=== PATIENT | female | born 1955 | race Caucasian/White ===

== ENCOUNTER 2020-02-15 06:33 | Observation (INO) ==
--- NOTE | 2020-02-01 08:51 | PAT Medication Instructions ---
Medication Instructions Date of Service February 01, 2020 Home Medications acetaminophen 1,000 mg PO QAM PRN amoxicillin 500 mg PO UD azelastine 2 spray INTRANASAL BID bupropion HCl 75 mg PO HS sjkhkiqjsp-xuiklivqirema-smep 1 cap PO Q6H PRN cyclosporine [Restasis] 1 drp OPHTHALMIC (EYE) Q12H docusate sodium [Dulcolax Stool Softener (dss)] 100 mg PO HS felodipine 5 mg PO QAM fexofenadine [Hayley] 60 mg PO BID PRN gabapentin 300 mg PO HS hydrochlorothiazide 12.5 mg PO QAM nitrofurantoin macrocrystal 50 mg PO UD pantoprazole 40 mg PO QAM polyethylene glycol 3350 [Miralax] 17 g PO DAILY PRN solifenacin [Vesicare] 10 mg PO Q2D Continue as directed amoxicillin 500 mg PO UD nitrofurantoin macrocrystal 50 mg PO UD DO NOT take the morning of surgery yzofvjqxdb-hhihlnxjozips-astd 1 cap PO Q6H PRN fexofenadine [Hayley] 60 mg PO BID PRN hydrochlorothiazide 12.5 mg PO QAM polyethylene glycol 3350 [Miralax] 17 g PO DAILY PRN solifenacin [Vesicare] 10 mg PO Q2D Take morning of surgery With a small sip of water, OTHERWISE NOTHING TO EAT OR DRINK AFTER MIDNIGHT: acetaminophen 1,000 mg PO QAM PRN (okay to take up to 4 hours prior to surgery if needed) azelastine 2 spray INTRANASAL BID cyclosporine [Restasis] 1 drp OPHTHALMIC (EYE) Q12H felodipine 5 mg PO QAM pantoprazole 40 mg PO QAM Take evening before surgery acetaminophen 1,000 mg PO QAM PRN (if needed) azelastine 2 spray INTRANASAL BID bupropion HCl 75 mg PO HS wrvugmhrgm-hkjkqofjemuer-sskv 1 cap PO Q6H PRN (if needed) cyclosporine [Restasis] 1 drp OPHTHALMIC (EYE) Q12H docusate sodium [Dulcolax Stool Softener (dss)] 100 mg PO HS fexofenadine [Hayley] 60 mg PO BID PRN (if needed) gabapentin 300 mg PO HS polyethylene glycol 3350 [Miralax] 17 g PO DAILY PRN (if needed) Other Notes If you have any questions please call us at [phone] or [phone] or [phone] or [phone]
--- NOTE | 2020-02-01 13:01 | Anesthesiology Consultation ---
Date of Service February 01, 2020 Assessment & Plan (1) Encounter for pre-operative examination: Per PAT assessment on 01/31: Travel screen- Lives in [place]. Travel to [facility] for doctor appt. Uses PPE. No known COVID-19 positive contacts. No current COVID-19 related symptoms. Surgeon arranging preop COVID testing. Awaiting results. Chart Review Chart Review: Acceptable Risk for Surgery and Patient seen in Pre Admission Testing Teaching & Discussion Pre-Anesthesia Teaching/Discussion Notes: Instructed NPO after midnight before surgery,except medications with 15 cc of water. Medication instructions provided according to the PAT guidelines. History Surgery Operation Date: 02/15/20 14:20 Proposed Procedures p Left Total Hip Arthroplasty - Jeremy Laura MD Height/Weight Height: 5 ft 7 in Weight: 94.1 kg Allergies Allergy/AdvReac Type Severity Reaction Status Date / Time codeine AdvReac Mild NAUSEA Verified 01/31/20 08:19 Medications Home Medications Medication Instructions Recorded Confirmed Last Taken acetaminophen 1,000 mg PO QAM PRN 01/31/20 01/31/20 Unknown amoxicillin 500 mg PO UD 01/31/20 01/31/20 Unknown azelastine 2 spray INTRANASAL BID 01/31/20 01/31/20 Unknown bupropion HCl 75 mg PO HS 01/31/20 01/31/20 Unknown ksnackigto-wzxptyffrirrh-fvhc 1 cap PO Q6H PRN 01/31/20 01/31/20 Unknown cyclosporine [Restasis] 1 drp OPHTHALMIC (EYE) Q12H 01/31/20 01/31/20 Unknown docusate sodium [Dulcolax Stool 100 mg PO HS 01/31/20 01/31/20 Unknown Softener (dss)] felodipine 5 mg PO QAM 01/31/20 01/31/20 Unknown fexofenadine [Hayley] 60 mg PO BID PRN 01/31/20 01/31/20 Unknown gabapentin 300 mg PO HS 01/31/20 01/31/20 Unknown hydrochlorothiazide 12.5 mg PO QAM 01/31/20 01/31/20 Unknown nitrofurantoin macrocrystal 50 mg PO UD 01/31/20 01/31/20 Unknown pantoprazole 40 mg PO QAM 01/31/20 01/31/20 Unknown polyethylene glycol 3350 [Miralax] 17 g PO DAILY PRN 01/31/20 01/31/20 Unknown solifenacin [Vesicare] 10 mg PO Q2D 01/31/20 01/31/20 Unknown Past Medical History Medical History Anxiety Constipation Depression GERD (gastroesophageal reflux disease) controlled Hx of renal calculi small/under surveillance Hyperlipidemia Hypertension Migraine Obesity Sleep apnea "mild"/no device Exercise / Class Metabolic Activity III < 4 Walking/Shop/Light housework (uses cane) Past Surgical History Surgical History (Updated 02/01/20 @ 13:22 by Silvina Monsivais) History of back surgery L3-S1 lumbar laminectomy/fusion History of carpal tunnel surgery of right wrist History of total left knee replacement (TKR) Hx laparoscopic cholecystectomy Hx of bladder repair surgery BLADDER SLING Hx of colonoscopy Hx of esophagogastroduodenoscopy Hx of hysterectomy Hx of tubal ligation Past Anesthesia History No Hx of Anesthesia Complications (except PONV) and No Family Hx of Anesthesia Complications History of PONV History of PONV and Hx of Motion Sickness Social History Smoking Status: Never smoker Do You Dip or Chew Tobacco: No Hx Alcohol Use: Yes alcohol intake frequency: holidays/special occasions only Hx Substance Use: No substance use type: does not use Review of Systems Patient denies chest pain, shortness of breath, fever, chills, cough, wheezing, palpitations. Physical Exam Vital Signs VITALS BP 129/87 P 70 TEMP 97.9 SP02 99%RA RESP 16 PHYSICAL Full neck and c-spine range of motion. Full TMJ range of motion. TMD 3.5 finger breaths Mallampati Score 1 Dentition: intact, + crowns (several all over), + implant (right lower side) Lungs: clear throughout to auscultation Cardiac: regular rate and rhythm, no murmurs noted Spine: normal Carotid arteries: negative bruit Extremities: no edema Testing Laboratory Results 02/01/20 13:30 02/01/20 13:30 PT 10.7 Seconds (9.0-12.0) 02/01/20 13:30 INR 1.0 (0.9-1.1) 02/01/20 13:30 APTT 28.3 Seconds (21.0-31.0) 02/01/20 13:30 Blood Type A Negative 02/01/20 13:30 Antibody Screen NEGATIVE 02/01/20 13:30 Electrocardiogram Date: 02/01/20 NSR at 68bpm. unconfirmed report. Chest X-Ray Date: 02/01/20 FINDINGS: PA and lateral chest radiographs are compared to study dated 11/10/2014. The cardiomediastinal silhouette is unremarkable. The lungs and pleural spaces are clear. There is no pneumothorax. The bony thorax appears intact. Surgical clips are noted in the upper abdomen. IMPRESSION: No active disease in the chest.
--- NOTE | 2020-02-01 13:55 | XRay Report ---
TWO VIEW CHEST CLINICAL HISTORY: Preoperative examination. FINDINGS: PA and lateral chest radiographs are compared to study dated 11/10/2014. The cardiomediastina l silhouette is unremarkable. The lungs and pleural spaces are clear. There is no pneumothorax. The bony thorax appears intact. Surgical clips are noted in the upper abdomen. IMPRESSION: No active disease in the chest. ACT 112: Negative or not required by law. Electronically signed by: Chase Reed M.D. 02/01/2020 1:54 PM
[2020-02-01 14:48] LABS: Basophils # (auto) 0.03 K/uL (0-0.2); Basophils % (auto) 0.5 %; Eosinophils # (auto) 0.08 K/uL (0-0.5); Eosinophils % (auto) 1.3 %; Hematocrit (blood only) 46.1 % (37-47); Hemoglobin 15.4 g/dL (12.0-16.0); Immature Granulocytes # (auto) 0.01 K/uL (0.00-0.02); Immature Granulocytes % (auto) 0.2 %; Lymphocytes # (auto) 2.92 K/uL (1.2-3.4); Lymphocytes % (auto) 45.8 %; Mean Corpuscular Hemoglobin 29.6 pg (25-34); Mean Corpuscular Hgb Conc 33.4 g/dL (32-36); Mean Corpuscular Volume 88.5 fL (80-100); Mean Platelet Volume 10.2 fL (7.4-10.4); Monocytes # (auto) 0.62 K/uL (0.11-0.59); Monocytes % (auto) 9.7 %; Neutrophils # (auto) 2.72 K/uL (1.4-6.5); Neutrophils % (auto) 42.5 %; Platelet Count 332 K/uL (130-400); RDW Coefficient of Variation 13.4 % (11.5-14.5); RDW Standard Deviation 43.7 fL (36.4-46.3); Red Blood Count 5.21 M/uL (4.2-5.4); White Blood Count 6.38 K/uL (4.8-10.8)
[2020-02-01 14:58] LABS: BUN Creatinine Ratio 19.3 (10-20); Blood Urea Nitrogen 19 mg/dl (7-18); C Reactive Protein < 0.29 mg/dl (0-0.29); Calcium 9.5 mg/dl (8.5-10.1); Carbon Dioxide 27 mmol/L (21-32); Chloride 106 mmol/L (98-107); Creatinine Clr Calc Pharmacy 68.5 ml/min; Est GFR (African American) 70.3; Est GFR (Non-African American) 60.6; Glucose 86 mg/dl (70-99); Potassium 3.9 mmol/L (3.5-5.1); Sodium 138 mmol/L (136-145)
[2020-02-01 15:10] LABS: Partial Thromboplastin Time 28.3 Seconds (21.0-31.0); Prothrombin Time 10.7 Seconds (9.0-12.0)
--- NOTE | 2020-02-01 17:14 | Electrocardiogram Report ---
Test Reason : Blood Pressure : / mmHG Vent. Rate : 068 BPM Atrial Rate : 068 BPM P-R Int : 150 ms QRS Dur : 084 ms QT Int : 418 ms P-R-T Axes : 053 041 026 degrees QTc Int : 444 ms Normal sinus rhythm Normal ECG When compared with ECG of 10-NOV-2014 13:48, No significant change was found Confirmed by Fei Zuleta ([id number]) on 02/01/2020 5:14:28 PM Referred By: Jeremy Laura Confirmed By:Fei Zuleta
[~2020-02-15 06:33] MED LIST: ACETAMINOPHEN 500 MG TAB PO SCH; CEFAZOLIN 2000MG 2,000 MG/15 ML SYR IV SCH; FAMOTIDINE 20 MG TAB PO SCH; GABAPENTIN 600 MG DOSE PO SCH; LR 500ML BOLUS, THEN 15ML/HR IV SCH; LR 60ML/HR IV SCH; ROPIVACAINE 0.5% HCL/PF 150 MG, BUPIVACAINE 0.5% MPF 30 ML, EPINEPHrine 30MG/30ML (OR U... INSTIL SCH; TRANEXAMIC ACID 1,000 MG **IV Pre-op IV SCH
[2020-02-15] MEDS ORDERED: BUPIVACAINE 0.5 % 5 MG/1 ML PF 10ML VIAL ONE (06:37)
--- NOTE | 2020-02-15 06:49 | History & Physical Bridge Note ---
Date of Service February 15, 2020 History & Physical Bridge Note I have examined the patient, reviewed the History & Physical and in the interval since the performance of the History & Physical I have noted the following changes of clinical significance: no changes noted
[2020-02-15] MEDS ORDERED: Nursing to Pharmacy Communication SCH (07:00)
[2020-02-15] MEDS ORDERED: GLYCOPYRROLATE 0.2 MG/ML VIAL ONE (07:09)
[2020-02-15] MEDS ORDERED: DEXAMETHASONE SOD INJ 4 MG/ML VIAL ONE (07:09)
[2020-02-15] MEDS ORDERED: ONDANSETRON INJ 2 MG/ML 2 ML VIAL ONE (07:09)
[2020-02-15] MEDS ORDERED: LIDOCAINE HCL 2% 2 ML VIAL/AMP(20MG/ML) INFIL ONE (07:09)
[2020-02-15] MEDS ORDERED: PROPOFOL IV EMULSION 10 MG/ML 20 ML VIAL IV ONE ×2 (07:09→09:38)
[2020-02-15] MEDS ORDERED: MIDAZOLAM HCL 1 MG/ML 2ML VIAL ONE (07:09)
[2020-02-15] MEDS ORDERED: MoRPHine SULFATE PF 1 MG/ML 10 ML AMP/VIAL ONE (07:36)
[2020-02-15] MEDS ORDERED: EPINEPHrine INJ 1 MG/ML AMP ONE (08:17)
[2020-02-15] MEDS ORDERED: BACITRACIN INJ 50,000 UNIT VIAL ONE (08:17)
[2020-02-15] MEDS ORDERED: BUPIVACAINE 0.5 % 5 MG/1 ML MPF 30ML VIAL ONE (08:17)
[2020-02-15] MEDS ORDERED: NALOXONE HCL 0.4 MG/1 ML VIAL/CARP IV PRN (08:30)
[2020-02-15] MEDS ORDERED: NALOXONE HCL 1 MG in SODIUM CHLORIDE 0.9% 1000ML 1,000 ML IV PRN (08:30)
[2020-02-15] MEDS ORDERED: DiphenhydrAMINE HCL 50 MG/ML VIAL IV PRN (08:30)
[2020-02-15] MEDS ORDERED: DC INTRASPINAL MORPHINE SCH (08:30)
[2020-02-15] MEDS ORDERED: NALOXONE HCL 0.08 MG in SYRINGE 1.8 ML IV PRN (08:30)
[2020-02-15] MEDS ORDERED: MEPERIDINE HCL 25 MG/ML CARP/VIAL IV PRN (08:30)
[2020-02-15] MEDS ORDERED: ePHEDrine sulfate 50 MG/ML AMP IV PRN (08:30)
[2020-02-15] MEDS ORDERED: MoRPHine SULFATE PF 1 MG/ML 10 ML AMP/VIAL INT SPINAL ONE (08:30)
[2020-02-15] MEDS ORDERED: SODIUM CHLORIDE 0.9% 1000ML 1,000 ML IV SCH (08:30)
[2020-02-15] MEDS ORDERED: LACTATED RINGER'S 500 ML IV PRN (08:30)
[2020-02-15] MEDS ORDERED: NO NARCOTICS OR SEDATIVES SCH (08:30)
--- NOTE | 2020-02-15 10:15 | Post Operative Brief Note ---
PG Immediate Post Op with CF Date of Surgery February 15, 2020 Pre & Post Diagnosis Operation Date: 02/15/20 08:50 Pre-Op Diagnosis: Left Hip Advanced Degenerative Joint Disease Post-Op Diagnosis: Left Hip Advanced Degenerative Joint Disease I identified the patient and participated in the time-out.: Yes Procedure Operation Date: 02/15/20 08:50 Actual Procedures p Left Total Hip Arthroplasty--Uncemented(Left) - Jeremy Laura MD Surgeon Jeremy Laura MD Tax Intern Derek, PAC Estimated Blood Loss 200 Findings Consistent with Post-Op Diagnosis Fluids 1000 cc Specimens Specimen Description: A. Left Femoral Head Drains Henry Catheter Anesthesia Type Spinal MAC Complications none Disposition Accompanied Patient To Recovery: Yes Disposition: Recovery Room
--- NOTE | 2020-02-15 10:29 | Operative Report ---
Post Operative Report Pre & Post Diagnosis Operation Date: 02/15/20 08:50 Pre-Op Diagnosis: Left Hip Advanced Degenerative Joint Disease Post-Op Diagnosis: Left Hip Advanced Degenerative Joint Disease I identified the patient and participated in the time-out.: Yes Procedure Operation Date: 02/15/20 08:50 Actual Procedures p Left Total Hip Arthroplasty--Uncemented(Left) - Jeremy Laura MD Surgeon Jeremy Laura MD Bulldozer Operator Derek, ALIYA Estimated Blood Loss 200 Findings Consistent with Post-Op Diagnosis femoral head and acetabulum. She had a large anterior acetabular osteophyte. Diffuse disuse osteopenia.Operative findings revealed advanced left hip DJD. She had subluxation of the femoral head with extensive grade 4 qhac-dy-namz disease of the acetabulum and femoral head. She had a large anterior acetabular osteophyte. She had extensive osteopenia. She had a very dysplastic acetabulum. Fluids 1000 cc. Specimens Left femoral head sent for pathology. Drains None. Anesthesia Type Spinal MAC Complications none Disposition Accompanied Patient To Recovery: Yes Disposition: Recovery Room Indications Patient is a 64-year-old female without a several year history of extensive left hip and leg and thigh pain and discomfort. She did undergo a pretty extensive back operation in [place] less than a year ago which is helped some with her back issues but she continued to be debilitated by her left hip and leg pain. She has had to resort to using a cane to get around and never got off that after spine surgery. X-ray showed advanced left hip DJD. She elected proceed with surgical treatment. Description of Procedure Operative implants consist of: 1. Biomet G7 size 54 mm acetabular shell. 2. Biomet 6.5 cancellus acetabular screws 1 and 35 mm length and 125 mm length. 3. An apex hole limiter. 4. Highly cross-linked polyethylene liner with a 54 mm outer diameter, 40 mm inner diameter with a leg placed inferior and posterior. 5. Consuelo Corail size 12 KLA femoral stem. 6. +8.5/40 mm ceramic articular ball. Patient was taken to the operating identified and placed on the operating table supine position but all contractors were properly padded. IV antibiotics tried by anesthesia team. A spinal anesthetic had been implemented in the holding area. A Henry catheter was placed in sterile fashion. The patient then placed in the right lateral decubitus position. An axillary roll was placed. The Stulberg hip positioner was used for position. Left hip and leg were then prepped and draped in usual sterile fashion. A posterior lateral approach to the left hip was then performed through a cur vilinear incision centered over the greater trochanter. Sharp dissection Through subcutaneous cyst down to the IT band gluteal fascia but the IT band gluteal fascia then incised longitudinally in line with the skin incision. The underlying greater truck bursa was excised. The piriformis and external rotators along with the posterior capsule were then released from the posterior aspect hip joint as a single layer. Great care was taken throughout the procedure protect the sciatic nerve at all times. The hip was internally rotated and dislocated. A femoral neck osteotomy cut was made with a final cut about 10 mm above the lesser trochanter. The femoral head was removed and sent for pathology. The femur was retracted anteriorly. Attention drawn the acetabulum. The acetabular labrum was excised to the pulmonary fat was excised. Sequential reaming of the acetabulum was then performed. We did have to elevate the hip joint center due to her underlying dysplasia. I first reamed it medially and then very carefully reamed superiorly. Even doing this we did appear to penetrate the medial pelvis just slightly. I reamed beginning it with a size 43 and progressing up to 53. I did enter the acetabular the 54 due to osteopenia and I really did not want to potentially sacrifice any fracture of the acetabulum. We got good interference fit with a 54. I did bone graft the medial wall and then placed a 54 cup in about 40 degrees lateral opening and 20 degrees of anteversion. I took great care to try and antevert this enough due to her extensive spine fusion and increased risk for dislocation. The anterior osteophyte was removed. Trial liner was placed. We did decide to place a 40 head in order to maximize her her stability as I was concerned about stability with her extensive spine fusion in the past. Attention drawn the femur. The proximal femur was entered with a cookie-cutter followed by canal finder. I then broached beginning size 8 and progressing up to 12. This had excellent fit. Calcar reamer was used smooth off the calcar. Then trialed the hip. I did elect to place a good inferior and posterior to maximize her stability. The +8.5 head seem to re-create soft tissue tension appropriately. With a +5 head which is seem to be too lax. The hip was fully stable in full extension and external rotation flexion to 9 degrees into rotation about [address] We elected to place these implants. All trial implants were removed. An apex hole limiter was placed with a highly cross-linked polyethylene liner was placed. I did place the foot inferior and posterior to maximize her stability in flexion. A [place] KLA size 12 femoral stem was impacted in position. A +8.5/40mm femoral head was placed. The hip was located and was again found to be stable. Soft tissue tension seemed appropriate. Leg lengths seemed appropriate. Attention drawn toward closing. The wound was irrigated scopes and also pulsatile lavage solution. I did inject locally with 60 cc of half percent Marcaine with epinephrine. The posterior capsule and external rotators were repaired through drill holes in the posterior trochanter as a single layer with #2 Tycron suture. The IT band gluteal fascia then closed in 1 PDS suture in running fashion. Subcutaneous tissues then closed with 2 layers the deep layer #1 Vicryl suture subcutaneous tissues with 2-0 Dexon suture in a buried interrupted fashion for skin was then closed with skin babs. Leg was then cleaned dried a sterile dressing composed Xeroform, 4 fours, ABD pad, foam tape was applied. Patient then transferred to the recovery room in stable condition. Patient tolerated the procedure well and there were no complications. Anderson Reed, my physician assistant product manager, was present for the entire procedure. His assistance was essential and required for appropriate patient positioning, prepping and draping, surgical exposure, performing the technical details of the operation, placement of the implants, closure of the wound, and placement of the sterile bandage. I attest to the content of the Intraoperative Record and any orders documented therein. Any exceptions are noted below.
--- NOTE | 2020-02-15 10:43 | XRay Report ---
XR hip 1V LT w pelvis HISTORY: 64 years-old Female IN PACU - A/P PELVIS and LATERAL HIP left hip total joint arthroplasty COMPARISON: Left hip radiographs 01/27/2020 TECHNIQUE: AP view of the pelvis with crosstable lateral view of the left hip FINDINGS: Left hip total joint arthroplasty demonstrates satisfactory alignment. No acute fracture or retained foreign body. Expected postsurgical soft tissue swelling and deep tissue air with lateral skin staple s. 1.5 cm bone fragment projects lateral to the superior acetabulum. Severe right hip osteoarthritis. IMPRESSION: Satisfactory alignment of the left hip total joint arthroplasty ACT 112: Negative or not required by law. The above report was generated using voice recognition software. It may contain grammatical, syntax o r spelling errors. Electronically signed by: Jasmeet Parish M.D. 02/15/2020 10:41 AM
[2020-02-15] MEDS: ONDANSETRON INJ 2 MG/ML 2 ML VIAL IV PRN ×3 (11:24→22:16)
--- NOTE | 2020-02-15 11:28 | Anesthesiology Progress Note ---
Date of Service February 15, 2020 Anesthesia Post Procedure Vital Signs Vital Signs: Temp Pulse Pulse Resp BP Pulse Ox 02/15/20 11:25 97.5 F L 61 14 109/70 96 02/15/20 11:15 65 15 115/74 98 02/15/20 11:05 62 15 108/61 98 02/15/20 10:55 65 15 112/60 98 02/15/20 10:45 69 13 117/64 97 02/15/20 10:35 66 14 129/78 98 02/15/20 10:25 75 19 112/88 100 02/15/20 10:15 76 17 113/76 99 02/15/20 10:09 96.8 F L 84 24 130/70 97 02/15/20 07:06 97.7 F 68 18 139/75 99 Transfer of Care Handoff Completed per policy Notes Mental Status: alert / awake / arousable and participated in evaluation Patient Amnestic to Procedure: Yes Nausea / Vomiting: adequately controlled Pain: adequately controlled Airway Patency, RR, SpO2: stable & adequate BP & HR: stable & adequate Hydration State: stable & adequate Neuraxial Anesthesia: was administered and sensory block is resolving Anesthetic Complications: no major complications apparent and Pt Satisfied with anesthetic care
[2020-02-15] MEDS ORDERED: FEXOFENADINE 60 MG TAB PO PRN (11:57)
[2020-02-15] MEDS ORDERED: bisacodyL 10 MG SUPP PR PRN (11:57)
[2020-02-15] MEDS ORDERED: ALUMINUM/MAGNESIUM SUSP 30 ML UDC PO PRN (11:57)
[2020-02-15] MEDS ORDERED: MAGNESIUM HYDROXIDE SUSP 30 ML UDC PO PRN (11:57)
[2020-02-15] MEDS ORDERED: METOCLOPRAMIDE HCL INJ 5 MG/ML 2 ML VIAL IV PRN (11:57)
[2020-02-15] MEDS ORDERED: POLYETHYLENE (MIRALAX) 17 GM PACK PO PRN (11:57)
[2020-02-15] MEDS: GENERAL ORDER PROBLEM SCH ×6 (12:02→23:19)
[2020-02-15] MEDS ORDERED: BUTALBITAL/ACETAMIN/CAFFEINE TAB PO PRN (12:10)
[2020-02-15] MEDS: SODIUM CHLORIDE 0.9% 1000ML 1,000 ML IV SCH ×2 (12:27→21:34)
[2020-02-15] MEDS: ACETAMINOPHEN 500 MG TAB PO SCH ×3 (12:39→22:22)
[2020-02-15] MEDS: KETOROLAC 30 MG/ML VIAL IV SCH ×2 (12:40→17:18)
[2020-02-15] MEDS: Scopolamine CHECK PATCH PLACEMENT SCH (16:09)
[2020-02-15] MEDS: AZELASTINE ~ ORDER AWAITING ACTION SCH (16:10)
[2020-02-15] MEDS: CEFAZOLIN 2000MG 2,000 MG/15 ML SYR IV SCH (16:10)
[2020-02-15] MEDS: ASCORBIC ACID 500 MG TAB PO SCH (16:11)
[2020-02-15] MEDS: FERROUS GLUCONATE 324 MG TAB PO SCH (16:11)
[2020-02-15] MEDS ORDERED: TRANEXAMIC ACID / 0.7% NACL 1,000 MG/100 ML BAG IV SCH (16:19)
[2020-02-15] MEDS ORDERED: DOCUSATE SODIUM 100 MG CAP PO SCH (21:00)
[2020-02-15] MEDS: DOCUSATE SODIUM 100 MG CAP PO SCH (21:32)
[2020-02-15] MEDS: SENNA 8.6 MG TAB PO SCH (21:32)
[2020-02-15] MEDS: buPROPion HCl 75 MG TABLET PO SCH (21:33)
[2020-02-15] MEDS: GABAPENTIN 300 MG CAP PO SCH (21:33)
[2020-02-15] MEDS: ASPIRIN 81 MG ECTAB PO SCH (21:33)
[2020-02-16] MEDS: Scopolamine CHECK PATCH PLACEMENT SCH ×3 (00:11→15:01)
[2020-02-16] MEDS: CEFAZOLIN 2000MG 2,000 MG/15 ML SYR IV SCH (00:11)
[2020-02-16] MEDS: AZELASTINE ~ ORDER AWAITING ACTION SCH (00:12)
[2020-02-16] MEDS: KETOROLAC 30 MG/ML VIAL IV SCH ×4 (00:13→18:34)
[2020-02-16] MEDS ORDERED: HYDROmorphone INJ 0.5 MG/0.5 ML SYR IV PRN (02:32)
[2020-02-16] MEDS ORDERED: ONDANSETRON INJ 2 MG/ML 2 ML VIAL IV PRN (02:32)
[2020-02-16] MEDS ORDERED: NALOXONE HCL 0.4 MG/1 ML VIAL/CARP IV PRN (02:32)
[2020-02-16] MEDS: ACETAMINOPHEN 500 MG TAB PO SCH ×3 (05:27→21:18)
[2020-02-16 06:29] LABS: Basophils # (auto) 0.01 K/uL (0-0.2); Basophils % (auto) 0.1 %; Hematocrit (blood only) 36.4 % (37-47); Hemoglobin 12.3 g/dL (12.0-16.0); Immature Granulocytes # (auto) 0.02 K/uL (0.00-0.02); Immature Granulocytes % (auto) 0.2 %; Lymphocytes # (auto) 1.93 K/uL (1.2-3.4); Lymphocytes % (auto) 21.8 %; Mean Corpuscular Hemoglobin 29.8 pg (25-34); Mean Corpuscular Hgb Conc 33.8 g/dL (32-36); Mean Corpuscular Volume 88.1 fL (80-100); Mean Platelet Volume 10.1 fL (7.4-10.4); Monocytes # (auto) 1.06 K/uL (0.11-0.59); Neutrophils # (auto) 5.84 K/uL (1.4-6.5); Neutrophils % (auto) 65.9 %; Platelet Count 239 K/uL (130-400); RDW Coefficient of Variation 13.6 % (11.5-14.5); RDW Standard Deviation 44.1 fL (36.4-46.3); Red Blood Count 4.13 M/uL (4.2-5.4); White Blood Count 8.86 K/uL (4.8-10.8)
[2020-02-16 06:57] LABS: BUN Creatinine Ratio 25.2 (10-20); Calcium 8.3 mg/dl (8.5-10.1); Creatinine Clr Calc Pharmacy 91.5 ml/min; Est GFR (African American) 99.9; Est GFR (Non-African American) 86.2; Potassium 3.8 mmol/L (3.5-5.1)
[2020-02-16] MEDS: TRAMADOL HCL 50 MG TABLET PO PRN ×2 (08:07→15:11)
[2020-02-16] MEDS: DOCUSATE SODIUM 100 MG CAP PO SCH ×2 (08:08→20:48)
[2020-02-16] MEDS: PANTOprazole 40 MG TAB PO SCH (08:08)
[2020-02-16] MEDS: MULTIVITAMIN TAB PO SCH (08:08)
[2020-02-16] MEDS: FERROUS GLUCONATE 324 MG TAB PO SCH ×2 (08:08→16:46)
[2020-02-16] MEDS: FELODIPINE 5 MG TABCR PO SCH (08:08)
[2020-02-16] MEDS: ASPIRIN 81 MG ECTAB PO SCH ×2 (08:09→20:49)
[2020-02-16] MEDS: ASCORBIC ACID 500 MG TAB PO SCH ×2 (08:09→16:46)
[2020-02-16] MEDS: hydroCHLOROthiazide 25 MG TAB PO SCH (08:09)
--- NOTE | 2020-02-16 11:56 | Progress Notes ---
DATE: 02/16/2020 SUBJECTIVE: A 64-year-old female, she is postop day 1 from a left total hip replacement. She is doing pretty well. The nausea that she had last night has resolved mostly. The pain has been controlled. No chest pain or shortness of breath. Not feeling dizzy or lightheaded. OBJECTIVE: VITAL SIGNS: Temperature 36.6. Vital signs are stable. GENERAL: Shows a pleasant, middle-aged female. She is lying in bed, looks pretty comfortable. LUNGS: Clear to auscultation. HEART: Regular rate and rhythm. ABDOMEN: Soft, nontender, nondistended. EXTREMITIES: Grossly neurovascularly intact except as follows: Examination of the left lower extremity reveals the leg lengths to be equal. Dressing is clean, dry and intact. She can dorsiflex and plantarflex her foot appropriately. She is neurologically intact. LABORATORY DATA: Hemoglobin 12.3. Hematocrit 36.4. Electrolytes are stable. ASSESSMENT: A 64-year-old female postoperative day 1 from left hip replacement, doing well. She was pretty nauseated last night, but that has resolved. Hip is located. She is neurologically intact. Pain seems to be pretty well controlled. PLAN: 1. DVT prophylaxis including thigh-high TEDs, SCDs, and aspirin twice a day. 2. PT/OT. Weight bear as tolerated. Left total hip protocol. 3. Pain control, doing pretty well with current pain regimen. 4. Disposition: She is hoping to be discharged to home with some home health. We will see how therapy goes today and likely tomorrow.
[2020-02-16] MEDS: buPROPion HCl 75 MG TABLET PO SCH (20:48)
[2020-02-16] MEDS: GABAPENTIN 300 MG CAP PO SCH (20:48)
[2020-02-16] MEDS: SENNA 8.6 MG TAB PO SCH (20:49)
[2020-02-17] MEDS: Scopolamine CHECK PATCH PLACEMENT SCH ×2 (00:33→07:44)
[2020-02-17] MEDS: KETOROLAC 30 MG/ML VIAL IV SCH ×2 (00:34→06:11)
[2020-02-17] MEDS: ACETAMINOPHEN 500 MG TAB PO SCH (06:11)
[2020-02-17] MEDS: PANTOprazole 40 MG TAB PO SCH (07:43)
[2020-02-17] MEDS: MULTIVITAMIN TAB PO SCH (07:43)
[2020-02-17] MEDS: FELODIPINE 5 MG TABCR PO SCH (07:43)
[2020-02-17] MEDS: hydroCHLOROthiazide 25 MG TAB PO SCH (07:43)
[2020-02-17] MEDS: FERROUS GLUCONATE 324 MG TAB PO SCH (07:43)
[2020-02-17] MEDS: ASPIRIN 81 MG ECTAB PO SCH (07:43)
[2020-02-17] MEDS: ASCORBIC ACID 500 MG TAB PO SCH (07:43)
[2020-02-17] MEDS: DOCUSATE SODIUM 100 MG CAP PO SCH (07:43)
[2020-02-17] MEDS: TRAMADOL HCL 50 MG TABLET PO PRN (07:48)
--- NOTE | 2020-02-17 08:52 | Progress Notes ---
DATE: 02/17/2020 SUBJECTIVE: A 64-year-old female postop day 2 from a left hip replacement. She is doing pretty well. Pain has been controlled. The nausea is resolved. No chest pain or shortness of breath. Not feeling dizzy or lightheaded. OBJECTIVE: VITAL SIGNS: Temperature 37.0. Vital signs stable. GENERAL: Shows a pleasant, middle-aged female. She is lying in bed, looks reasonably comfortable. EXTREMITIES: Examination of the left leg reveals the leg to be well aligned. Dressing is clean, dry and intact. Thigh is soft and supple. She is neurologically intact. ASSESSMENT: A 64-year-old female postop day 2 from a left hip replacement, doing well. The nausea has resolved. Her pain is controlled. She is neurologically intact. Hip is located. PLAN: 1. DVT prophylaxis including thigh-high TEDs, SCDs, and aspirin twice a day. 2. PT/OT. Weight bear as tolerated. Left total hip protocol. 3. Pain control, doing pretty well with current pain regimen. 4. Disposition: Plan to discharge to home with some home health later today.
--- NOTE | 2020-02-23 15:04 | Discharge Summary ---
Date of Service February 23, 2020 Admission HPI Per Admitting Provider Documented in the H & P Admission Exam (Per Admitting) Constitutional Documented in the H & P Discharge Data Consultations 02/16/20 08:00 Consult Case Management - Discharge Planning Routine Procedures Performed Operation Date: 02/15/20 08:50 Actual Procedures p Left Total Hip Arthroplasty--Uncemented(Left) - Jeremy Laura MD Hospital Course (1) Status post total replacement of left hip: This patient is a 64 year old female admitted on 02/15/20 and underwent total hip arthroplasty. He tolerated the procedure well and there were no complications. Transferred to the PACU post op and later to the orthopedic floor for further care. He was given ancef for antibiotic prophylaxis. He was also given BARBARA stockings, SCDs, and aspirin for DVT prophylaxis. Hemoglobin, hematocrit, and vital signs were monitored during her hospital stay and remained stable. Did not require any blood transfusions. There were no complications during her hospital stay. By post op day #2 the patient was tolerating a regular diet, pain was reasonably controlled with oral pain medicine, and he was participating in physical therapy. On post op day #2 the patient was discharged home and set up with home health care. He was given printed discharge instructions including prescriptions for extra strength tylenol, aspirin, tramadol, and iron supplement. Continue physical therapy, weight bearing as tolerated. Total hip precautions. Continue BARBARA stockings. Follow up approximately 2 weeks post op or sooner if there are problems or concerns. Coding Level of Care Code None Diagnoses Status post total replacement of left hip Z96.642
== END 2020-02-17 11:39 | disposition home health service (06) ==
LOC: 3E 06:33 → ASU 06:33

== ENCOUNTER 2021-09-03 08:17 | Observation (INO) ==
--- NOTE | 2021-03-15 12:54 | PAT Medication Instructions ---
Medication Instructions Date of Service March 15, 2021 Home Medications acetaminophen 500 mg tablet 1,000 mg PO QAM PRN amoxicillin 500 mg capsule 500 mg PO UD azelastine 137 mcg (0.1 %) nasal spray aerosol 2 spray INTRANASAL BID bupropion HCl 75 mg tablet 75 mg PO HS cyclosporine 0.05 % eye drops in a dropperette (Restasis) 1 drp OPHTHALMIC (EYE) Q12H docusate sodium 100 mg capsule (Dulcolax Stool Softener (docusate)) 100 mg PO HS felodipine 5 mg tablet,extended release 24 hr 5 mg PO QAM fexofenadine 60 mg tablet 60 mg PO BID PRN gabapentin 300 mg capsule 300 mg PO HS hydrochlorothiazide 12.5 mg tablet 12.5 mg PO QAM nitrofurantoin macrocrystal 50 mg capsule 50 mg PO UD pantoprazole 40 mg tablet,delayed release 40 mg PO QAM polyethylene glycol 3350 17 gram/dose oral powder (Miralax) 17 g PO DAILY solifenacin 10 mg tablet (Vesicare) 10 mg PO Q2D ciclopirox 0.77 % topical cream 1 applic TOPICAL BID PRN terbinafine HCl 250 mg tablet 250 mg PO QPM Continue as directed amoxicillin 500 mg capsule 500 mg PO UD (prior to dental procedures) nitrofurantoin macrocrystal 50 mg capsule 50 mg PO UD (if needed) STOP taking 24 hours before surgery ciclopirox 0.77 % topical cream 1 applic TOPICAL BID PRN DO NOT take the morning of surgery hydrochlorothiazide 12.5 mg tablet 12.5 mg PO QAM polyethylene glycol 3350 17 gram/dose oral powder (Miralax) 17 g PO DAILY solifenacin 10 mg tablet (Vesicare) 10 mg PO Q2D fexofenadine 60 mg tablet 60 mg PO BID PRN Take morning of surgery With a small sip of water, OTHERWISE NOTHING TO EAT OR DRINK AFTER MIDNIGHT: acetaminophen 500 mg tablet 1,000 mg PO QAM PRN (okay to take up to 4 hours prior to surgery if needed) azelastine 137 mcg (0.1 %) nasal spray aerosol 2 spray INTRANASAL BID cyclosporine 0.05 % eye drops in a dropperette (Restasis) 1 drp OPHTHALMIC (EYE) Q12H felodipine 5 mg tablet,extended release 24 hr 5 mg PO QAM pantoprazole 40 mg tablet,delayed release 40 mg PO QAM Take evening before surgery acetaminophen 500 mg tablet 1,000 mg PO QAM PRN (if needed) azelastine 137 mcg (0.1 %) nasal spray aerosol 2 spray INTRANASAL BID bupropion HCl 75 mg tablet 75 mg PO HS cyclosporine 0.05 % eye drops in a dropperette (Restasis) 1 drp OPHTHALMIC (EYE) Q12H docusate sodium 100 mg capsule (Dulcolax Stool Softener (docusate)) 100 mg PO HS fexofenadine 60 mg tablet 60 mg PO BID PRN (if needed) gabapentin 300 mg capsule 300 mg PO HS terbinafine HCl 250 mg tablet 250 mg PO QPM Other Notes If you have any questions please call us at [phone] or [phone] or [phone] or [phone]
--- NOTE | 2021-03-19 13:40 | Anesthesiology Consultation ---
Date of Service March 19, 2021 Assessment & Plan (1) Encounter for pre-operative examination: - 3 attempts for SAB per anesthesia records left MICKEY 02/2020. Patient mentions temporary burning sensation of left lower extremity, reports resolution with needle re-positioning without recurrence. She expresses some concern with spinal, but that is still interested in spinal anesthesia. We discussed spinal and general anesthesia in detail and patient prefers plan of spinal anesthesia, aware this may change to general anesthesia if needed DOS. She denied further questions or concerns regarding this, she will also discuss with anesthesiologist am DOS. - Patient reports h/o PONV thought to be d/t morphine expressing N/V was not immediately post-op. She states did well with scop patch last year, reflected in records. She denies side effects with patch or h/o glaucoma. Added to orders for am DOS. - COVID screening: Per assessment on 03/19/2021: Travel screen negative, no known COVID-19 positive contacts or current COVID-19 related symptoms. Patient vaccinated. Surgeon arranging preop COVID testing, scheduled 04/11/2021. Awaiting results. Chart Review Chart Review: Acceptable Risk for Surgery and Patient seen in Pre Admission Testing Teaching & Discussion Pre-Anesthesia Teaching/Discussion Notes: Instructed NPO after midnight before surgery, except medications with 15 cc of water. Medication instructions provided according to the PAT guidelines. History Surgery Operation Date: 04/13/21 07:00 Proposed Procedures p Right Total Hip Arthroplasty - Jeremy Laura MD Height/Weight Height: 5 ft 7 in Weight: 101.2 kg Allergies Allergy/AdvReac Type Severity Reaction Status Date / Time morphine Allergy Intermediate Hives, Verified 03/19/21 13:21 vomiting codeine AdvReac Mild Nausea Verified 03/19/21 13:21 Medications Home Medications Medication Instructions Recorded Confirmed Last Taken acetaminophen 500 mg tablet 1,000 mg PO QAM PRN 01/31/20 03/12/21 02/14/20 22:00 amoxicillin 500 mg capsule 500 mg PO UD 01/31/20 03/12/21 Unknown azelastine 137 mcg (0.1 %) nasal 2 spray INTRANASAL BID 01/31/20 03/12/21 02/15/20 04:00 spray aerosol bupropion HCl 75 mg tablet 75 mg PO HS 08/24/20 10/04/21 09/07/20 22:00 cyclosporine 0.05 % eye drops in a 1 drp OPHTHALMIC (EYE) Q12H 01/31/20 03/12/21 02/15/20 04:00 dropperette (Restasis) docusate sodium 100 mg capsule 100 mg PO HS 01/31/20 03/12/21 02/14/20 22:00 (Dulcolax Stool Softener (docusate)) felodipine 5 mg tablet,extended 5 mg PO QAM 01/31/20 03/12/21 02/15/20 04:30 release 24 hr fexofenadine 60 mg tablet 60 mg PO BID PRN 01/31/20 03/12/21 Unknown gabapentin 300 mg capsule 300 mg PO HS 01/31/20 03/12/21 02/14/20 22:00 hydrochlorothiazide 12.5 mg tablet 12.5 mg PO QAM 01/31/20 03/12/21 02/14/20 10:30 nitrofurantoin macrocrystal 50 mg 50 mg PO UD 01/31/20 03/12/21 Unknown capsule pantoprazole 40 mg tablet,delayed 40 mg PO QAM 01/31/20 03/12/21 02/15/20 04:30 release polyethylene glycol 3350 17 17 g PO DAILY 01/31/20 03/12/21 02/14/20 10:30 gram/dose oral powder (Miralax) solifenacin 10 mg tablet (Vesicare) 10 mg PO Q2D 01/31/20 03/12/21 02/13/20 22:00 ciclopirox 0.77 % topical cream 1 applic TOPICAL BID PRN 03/12/21 03/12/21 Unknown terbinafine HCl 250 mg tablet 250 mg PO QPM 03/12/21 03/12/21 Unknown Past Medical History Medical History (Updated 03/19/21 @ 13:56 by Filomena Alvarez PA-C) Anxiety and depression Arthritis Constipation GERD (gastroesophageal reflux disease) Controlled, stable, denies issues laying flat History of migraine Hx of renal calculi "Small"/under surveillance Hyperlipidemia Hypertension Well controlled, stable Obesity Sleep apnea "Mild"/no device Patient denies h/o stroke, seizures, heart attack, heart failure, DM, blood clots or blood transfusions. Exercise / Class Metabolic Activity II 4-5 Yardwork/Stairs/Walk up hill (no CP or SOB with 1 FOS) Past Family History Family History Brother Family hx of colon cancer Past Surgical History Surgical History Family history of reaction to anesthesia Mother > "slow to wake" History of back surgery L3-S1 lumbar laminectomy/fusion History of carpal tunnel surgery of right wrist History of tooth extraction History of total hip arthroplasty Left MICKEY (02/15/20): SAB at L4-L5 (x THREE attempts) at [facility] History of total left knee replacement (TKR) Hx laparoscopic cholecystectomy Hx of bladder repair surgery Bladder sling Hx of colonoscopy Hx of esophagogastroduodenoscopy Hx of hysterectomy Hx of tubal ligation Nausea and vomiting after administration of anesthetic agent [place] teeth removed Past Anesthesia History No Hx of Anesthesia Complications and No Family Hx of Anesthesia Complications History of PONV No Hx of Motion Sickness and History of PONV (She reports thought to be d/t morphine, states has received scopolamine patch in past without side effects.) Social History Smoking Status: Never smoker Hx Alcohol Use: Yes alcohol intake frequency: holidays/special occasions only substance use type: does not use Review of Systems Patient denies chest pain, shortness of breath, dyspnea on exertion, fever, chills, cough, wheezing, palpitations. Physical Exam Vital Signs Vitals BP 110/77 P 89 TEMP 97.9 SP02 96% on RA RESP 16 Physical Full cervical extension range of motion without pain TMD 3 finger breaths Mallampati Score 2 Dentition: intact, missing tooth top left, implant bottom right side, multiple crowns throughout (denies any front); denies loose or chipped teeth or bridges Lungs: normal respiratory effort. Clear throughout to auscultation, no adventitious breath sounds Cardiac: regular rate and rhythm, no murmurs noted Carotid arteries: negative bruit bilat Extremities: no distal extremity edema Lab Results Anesthesia Preop Results Results Anesthesia Widget: WBC 6.78 K/uL (4.8-10.8) 03/19/21 Hgb 14.9 g/dL (12.0-16.0) 03/19/21 Hct 42.6 % (37-47) 03/19/21 Plt 349 K/uL (130-400) 03/19/21 Na 137 mmol/L (136-145) 03/19/21 K 3.7 mmol/L (3.5-5.1) 03/19/21 Cl 107 mmol/L (98-107) 03/19/21 CO2 23 mmol/L (21-32) 03/19/21 BUN 17 mg/dl (7-18) 03/19/21 Creat 0.92 mg/dl (0.6-1.2) 03/19/21 Glucose Level 112 mg/dl (70-99) H 03/19/21 PT 9.9 Seconds (9.0-12.0) 03/19/21 PTT 26.5 Seconds (21.0-31.0) 03/19/21 INR 1.0 (0.9-1.1) 03/19/21 Blood Type A Negative 03/19/21 Antibody Screen NEGATIVE 03/19/21 Lab Comments: ESR 31. CRP 0.56. Testing Electrocardiogram Date: 03/19/21 Normal sinus rhythm, rate at 76 bpm. Normal ECG When compared with ECG of 01-FEB-2020 13:35, Nonspecific T wave abnormality now evident in Anterior leads Confirmed by Papo Hernandez. Chest X-Ray Date: 03/19/21 No acute cardiopulmonary findings.
--- NOTE | 2021-08-24 10:47 | Anesthesiology Consultation ---
Date of Service August 24, 2021 Assessment & Plan (1) Encounter for pre-operative examination: Chart Review Chart Review: Acceptable Risk for Surgery (pending preop Covid testing results ) and Patient NOT seen in Pre Admission Testing Per Anesthesia Consultation 03/19/21= "-Patient reports h/o PONV thought to be d/t morphine expressing N/V was not immediately post-op. She states did well with scop patch last year, reflected in records. She denies side effects with patch or h/o glaucoma. (Could consider scop patch for DOS) Per nursing assessment 08/24/2021, patient denies any recent travel. Wears mask in public. No known Covid infection in the past 90 days. Patient is fully vaccinated for Covid. No known Covid positive exposures or Covid related symptoms. Preop Covid testing scheduled 08/31/21= will await results - 3 attempts for SAB at L4-5 per anesthesia records left MICKEY 02/15/2020 Per Anesthesia Consultation 03/19/21= "Patient mentions temporary burning sensation of left lower extremity, reports resolution with needle re-positioning without recurrence. She expresses some concern with spinal, but that is still interested in spinal anesthesia. We discussed spinal and general anesthesia in detail and patient prefers plan of spinal anesthesia, aware this may change to general anesthesia if needed DOS. She denied further questions or concerns regarding this, she will also discuss with anesthesiologist am DOS." History Surgery Operation Date: 04/13/21 07:00 Proposed Procedures p Right Total Hip Arthroplasty - Jeremy Laura MD Operation Date: 07/05/21 08:50 Proposed Procedures p Right Total Hip Arthroplasty - Jeremy Laura MD Operation Date: 09/03/21 10:40 Proposed Procedures p Right Total Hip Arthroplasty - Jeremy Laura MD Height/Weight Height: 5 ft 7 in Weight: 99.79 kg Allergies Allergy/AdvReac Type Severity Reaction Status Date / Time morphine Allergy Intermediate Hives, Verified 08/24/21 09:48 vomiting codeine AdvReac Mild Nausea Verified 08/24/21 09:48 Medications Home Medications Medication Instructions Recorded Confirmed Last Taken acetaminophen 500 mg tablet 1,000 mg PO QAM PRN 01/31/20 08/24/21 02/14/20 22:00 amoxicillin 500 mg capsule 500 mg PO UD 01/31/20 08/24/21 Unknown azelastine 137 mcg (0.1 %) nasal 2 spray INTRANASAL BID 01/31/20 08/24/21 02/15/20 04:00 spray aerosol bupropion HCl 75 mg tablet 150 mg PO HS 01/31/20 08/24/21 02/14/20 22:00 cyclosporine 0.05 % eye drops in a 1 drp OPHTHALMIC (EYE) Q12H 01/31/20 08/24/21 02/15/20 04:00 dropperette (Restasis) docusate sodium 100 mg capsule 100 mg PO HS 01/31/20 08/24/21 02/14/20 22:00 (Dulcolax Stool Softener (docusate)) felodipine 5 mg tablet,extended 5 mg PO QAM 01/31/20 08/24/21 02/15/20 04:30 release 24 hr fexofenadine 60 mg tablet 60 mg PO BID PRN 01/31/20 08/24/21 Unknown gabapentin 300 mg capsule 300 mg PO HS 01/31/20 08/24/21 02/14/20 22:00 hydrochlorothiazide 12.5 mg tablet 12.5 mg PO QAM 01/31/20 08/24/21 02/14/20 10:30 nitrofurantoin macrocrystal 50 mg 50 mg PO UD 01/31/20 08/24/21 Unknown capsule pantoprazole 40 mg tablet,delayed 40 mg PO QAM 01/31/20 08/24/21 02/15/20 04:30 release polyethylene glycol 3350 17 17 g PO QAM 01/31/20 08/24/21 02/14/20 10:30 gram/dose oral powder (Miralax) solifenacin 10 mg tablet (Vesicare) 10 mg PO Q2D 01/31/20 08/24/21 02/13/20 22:00 ciclopirox 0.77 % topical cream 1 applic TOPICAL BID PRN 03/12/21 08/24/21 Unknown alprazolam 0.5 mg tablet 0.5 mg PO HS PRN 08/24/21 08/24/21 Unknown amino acids (Amino Acid) 1 cap PO UD 08/24/21 08/24/21 Unknown Past Medical History Medical History Anxiety and depression Arthritis Constipation GERD (gastroesophageal reflux disease) Controlled, stable, denies issues laying flat History of migraine Hx of renal calculi "Small"/under surveillance Hyperlipidemia Hypertension Well controlled, stable Obesity Sleep apnea "Mild"/no device Past Family History Family History Brother Family hx of colon cancer Mother Family history of reaction to anesthesia SLOW TO WAKE UP Past Surgical History Surgical History History of back surgery L3-S1 lumbar laminectomy/fusion History of carpal tunnel surgery of right wrist History of tooth extraction History of total hip arthroplasty Left MICKEY (02/15/20): SAB at L4-L5 (x THREE attempts) at [facility] History of total left knee replacement (TKR) Hx laparoscopic cholecystectomy Hx of bladder repair surgery Bladder sling Hx of colonoscopy Hx of esophagogastroduodenoscopy Hx of hysterectomy Hx of tubal ligation Nausea and vomiting after administration of anesthetic agent [place] teeth removed Social History Smoking Status: Never smoker Do You Dip or Chew Tobacco: No Hx Alcohol Use: Yes Alcohol type: wine alcohol intake frequency: holidays/special occasions only Alcohol Intake Frequency Comment: RARELY substance use type: does not use Lab Results Anesthesia Preop Results Results Anesthesia Widget: WBC 5.74 K/uL (4.8-10.8) 08/14/21 Hgb 15.0 g/dL (12.0-16.0) 08/14/21 Hct 43.6 % (37-47) 08/14/21 Plt 326 K/uL (130-400) 08/14/21 Na 139 mmol/L (136-145) 08/14/21 K 3.8 mmol/L (3.5-5.1) 08/14/21 Cl 106 mmol/L (98-107) 08/14/21 CO2 26 mmol/L (21-32) 08/14/21 BUN 21 mg/dl (6-23) 08/14/21 Creat 0.80 mg/dl (0.6-1.2) 08/14/21 Glucose Level 84 mg/dl (70-99(Fasting)) 08/14/21 PT 10.3 Seconds (9.0-12.0) 08/14/21 PTT 26.8 Seconds (21.0-31.0) 08/14/21 INR 1.0 (0.9-1.1) 08/14/21 Blood Type A Negative 08/14/21 Antibody Screen NEGATIVE 08/14/21 Testing Electrocardiogram Date: 03/19/21 Normal sinus rhythm, rate at 76 bpm. When compared with ECG of 01-FEB-2020, nonspecific T wave abnormality now evident in Anterior leads per cardio Chest X-Ray Date: 03/19/21 No acute cardiopulmonary findings.
[~2021-09-03 08:17] MED LIST changes: +BUPIVACAINE 0.5 % 5 MG/1 ML PF 10ML VIAL ONE; -CEFAZOLIN 2000MG 2,000 MG/15 ML SYR IV SCH; +CHECK SCOPOLAMINE PATCH PLACEMENT SCH; +METOCLOPRAMIDE HCL 10 MG TABLET PO SCH; -ROPIVACAINE 0.5% HCL/PF 150 MG, BUPIVACAINE 0.5% MPF 30 ML, EPINEPHrine 30MG/30ML (OR U... INSTIL SCH; +SCOPOLAMINE 1 MG TDSY TD SCH; +Scopolamine 1 MG TDSY TD SCH; +Scopolamine CHECK PATCH PLACEMENT SCH; +ceFAZolin 2000MG 2,000 MG/15 ML SYR IV SCH
--- NOTE | 2021-09-03 09:08 | History & Physical Bridge Note ---
Date of Service September 03, 2021 History & Physical Bridge Note I have examined the patient, reviewed the History & Physical and in the interval since the performance of the History & Physical I have noted the following changes of clinical significance: no changes noted
[2021-09-03] MEDS ORDERED: MIDAZOLAM HCL 1 MG/ML 2ML VIAL ONE ×2 (10:18→11:39)
[2021-09-03] MEDS ORDERED: fentaNYL citrate 100 MCG/2 ML VIAL ONE (10:18)
[2021-09-03] MEDS ORDERED: BUPIVACAINE 0.5 % 5 MG/1 ML MPF 30ML VIAL ONE (11:00)
[2021-09-03] MEDS ORDERED: EPINEPHrine INJ 1 MG/ML AMP ONE (11:00)
[2021-09-03] MEDS ORDERED: ePHEDrine sulfate 50 MG/ML AMP IV PRN (11:18)
[2021-09-03] MEDS ORDERED: ONDANSETRON INJ 2 MG/ML 2 ML VIAL IV PRN (11:18)
[2021-09-03] MEDS ORDERED: ATROPINE SULFATE 0.1 MG/ML 10ML SYR IV PRN (11:18)
[2021-09-03] MEDS ORDERED: PROPOFOL IV EMULSION 10 MG/ML 20 ML VIAL IV ONE (12:25)
[2021-09-03] MEDS ORDERED: ONDANSETRON INJ 2 MG/ML 2 ML VIAL ONE (12:25)
[2021-09-03] MEDS ORDERED: PHENYLEPHRINE 100MCG/ML 5ML SYR ONE (12:25)
--- NOTE | 2021-09-03 13:03 | Operative Report ---
PG Post Operative Report Pre & Post Diagnosis Operation Date: 04/13/21 07:00 <No data on this case meets the specified criteria> Operation Date: 07/05/21 08:50 <No data on this case meets the specified criteria> Operation Date: 09/03/21 10:40 Pre-Op Diagnosis: Right Hip Osteoarthritis Post-Op Diagnosis: Right Hip Osteoarthritis I identified the patient and participated in the time-out.: Yes Procedure Operation Date: 04/13/21 07:00 <No data on this case meets the specified criteria> Operation Date: 07/05/21 08:50 <No data on this case meets the specified criteria> Operation Date: 09/03/21 10:40 Actual Procedures p Right Total Hip Arthroplasty - Jeremy Laura MD Surgeon Jeremy Laura MD Flight Simulator Teacher Anderson Reed PA-C Estimated Blood Loss 200 Findings Consistent with Post-Op Diagnosis Operative findings were advanced right hip DJD. She had extensive grade 4 [id number] disease the femoral head and acetabulum. She had a collapse of the femoral head and fibers debris within the joint itself. Moderate-sized joint effusion. Fluids 1000 cc Specimens Right femoral head sent for pathology Drains None Anesthesia Type Spinal MAC Complications none Disposition Accompanied Patient To Recovery: Yes Indications Patient is a 66-year-old female has had a long history of hip problems. She underwent a left hip replaced in the past and is done well from this. Over the past year she developed marked increased pain discomfort in her right hip. X- rays show progressive loss of joint space and collapse of the femoral head. She elected proceed with total hip arthroplasty. Description of Procedure Operative implants consist of: 1. Biomet G7 size 54 mm acetabular shell. 2. 6.5 cancellous acetabular screws 1 of 35 mm length and 1 of 25 mm length. 3. Burleson hole eliminator. 4. Highly cross-linked polyethylene liner with a 54 mm outer diameter, 36 mm diameter with a woodruff placed inferior and posterior. 5. Consuelo Corail size 11 KLA femoral stem. 6. +5/36 mm ceramic articular ball. The patient was taken to the operating, identified, placed on the operating table supine position protectors were properly padded. IV antibiotics 5 by anesthesia team. A Henry cath was placed in sterile fashion. The patient then placed in the left lateral decubitus position. An axillary roll was placed. A Stulberg hip positioner was used for positioning. The right hip and leg were then prepped and draped in usual sterile fashion. A posterior lateral approach of the right hip was then performed to a curvilinear incision centered over the greater trochanter. Sharp dissection was carried through subcutaneous tissue down to the IT band gluteal fascia the IT band gluteal fascia incised longitudinally in line with skin incision. The underlying greater bursa was excised. The piriformis and external rotators along with the posterior hip joint capsule were then released in the posterior aspect hip as a single layer. Great care was taken throughout the procedure protect the sciatic nerve at all times. Hip was internally rotated and dislocated. Femoral neck osteotomy cut was made with Final Cut 11 mm above the lesser trochanter. Femoral head was removed and sent for pathology. The femur was retracted anteriorly. Attention drawn the acetabulum. The acetabular labrum was excised. The pulmonary fat was excised. Sequential reaming the acetabulum was then performed again with size 43 and progressing up to 53. I did reamed a little bit with a 54 reamer and then placed a 54 mm Biomet cup. This was placed in about 40 degrees lateral opening and 20 degrees of anteversion. It was then secured with two 6.5 cancellous acetabular screws. Trial liner was placed. Attention drawn the femur. The proximal femur was entered with a cookie-cutter followed by canal finder. I then broached begin the size 8 and progressed up to 11. The labrum was quite tight and I did not think I can fit the 12 so we stop there. We trialed the hip and the hip was fully stable with a +5 articular ball in full extension and external rotation and flexion to 9 degrees internal rotation over 50 degrees. Leg lengths seemed appropriate and equal and soft tissue tension was appropriate. I did elect to place a woodruff on the liner to maximize her stability in flexion as she has a significant back fusion in the past. All trial implants were removed. An apex hole safety equipment testing specialist was placed but highly cross-linked polyethylene liner with a woodruff placed inferior and posterior with a impacted in position. A DePuy size 11 KLA femoral stem was impacted in position. +5/36 mm ceramic articular ball was placed. Hip was located once again found to be stable. Attention drawn toward closing. The wound was irrigated scope soft pulsatile lavage solution. I did inject locally with 60 cc of half percent Marcaine with epinephrine. The posterior capsule external rotators were then repaired through drill holes in the posterior trochanter as a single layer with #2 Tycron suture. The IT band gluteal fascia then closed #1 PDS suture running fashion for subcutaneous tissue then closed in 2 layers the deep layer #2-0 Vicryl suture in the subcutaneous tissue with 2-0 Dexon suture in a buried interrupted fashion for skin was closed skin babs. Leg was then cleaned and dried a sterile dressing was Xeroform, 4 x 4's, sterile ABD pad and foam tape was applied. Patient then transferred to the recovery room in stable condition. Patient tolerated procedure well and there were no complications. Anderson Reed, my physician customer marketing assistant, was present for the entire procedure. His assistance was essential and required for appropriate patient positioning, prepping and draping, surgical exposure, performing the technical details of the operation, placement the implants, closure of the wound, and placement of the sterile bandage. I attest to the content of the Intraoperative Record and any orders documented therein. Any exceptions are noted below.
--- NOTE | 2021-09-03 13:44 | XRay Report ---
XR hip 1V RT w pelvis HISTORY: 66 years-old Female IN PACU - A/P PELVIS and LATERAL HIP right hip total joint arthroplast y COMPARISON: Hip radiographs 08/31/2021 TECHNIQUE: AP view of the pelvis with crosstable lateral view of the right hip FINDINGS: Unchanged left hip total joint arthroplasty. Right hip total joint arthroplasty demonstrates satisfac tory alignment without acute fracture or unexpected opaque foreign body. Lateral skin babs are pre sent along with expected postoperative soft tissue swelling with deep tissue air. IMPRESSION: Right hip total joint arthroplasty with expected postoperative changes. ACT 112: Negative or not required by law. The above report was generated using voice recognition software. It may contain grammatical, syntax o r spelling errors. Electronically signed by: Timmy Parish M.D. 09/03/2021 1:42 PM
[2021-09-03] MEDS: fentaNYL citrate 100 MCG/2 ML VIAL IV PRN ×2 (13:52→13:58)
[2021-09-03] MEDS ORDERED: NON-FORMULARY MEDICATION (Amino Acids [Amino Acid] Capsule) PO SCH (14:37)
[2021-09-03] MEDS ORDERED: FEXOFENADINE 60 MG TAB PO PRN (14:37)
[2021-09-03] MEDS ORDERED: ALPRAZolam 0.5 MG TABLET PO PRN (14:37)
[2021-09-03] MEDS ORDERED: ONDANSETRON 4 MG OD TAB PO PRN (14:47)
[2021-09-03] MEDS: KETOROLAC 30 MG/ML VIAL IV SCH ×2 (15:10→20:42)
[2021-09-03] MEDS: SODIUM CHLORIDE 0.9% 1000ML 1,000 ML IV SCH (15:10)
[2021-09-03] MEDS: Scopolamine CHECK PATCH PLACEMENT SCH (15:10)
[2021-09-03] MEDS: *RESTASIS*ORDER AWAITING ACTION SCH ×2 (15:11→23:25)
--- NOTE | 2021-09-03 15:14 | Anesthesiology Progress Note ---
Date of Service September 03, 2021 Anesthesia Post Procedure Vital Signs Vital Signs: Temp Pulse Pulse Pulse Resp BP Pulse Ox 09/03/21 14:56 63 16 118/77 96 09/03/21 14:20 36.4 C L 63 16 126/76 95 09/03/21 14:10 60 17 126/81 99 09/03/21 14:00 36.3 C L 62 13 114/74 99 09/03/21 13:50 75 15 125/86 97 09/03/21 13:45 63 17 109/69 97 09/03/21 13:35 69 14 124/70 98 09/03/21 13:25 36.3 C L 70 15 123/73 98 09/03/21 13:15 65 17 116/71 98 09/03/21 13:05 71 20 116/67 100 09/03/21 12:55 74 20 128/78 100 09/03/21 12:49 36.3 C L 74 16 121/69 98 09/03/21 08:58 36.7 C 66 18 147/91 H 98 Pain Intensity Right Hip: Pain Intensity: 2 Transfer of Care Handoff Completed per policy Notes Mental Status: alert / awake / arousable and participated in evaluation Nausea / Vomiting: adequately controlled Pain: adequately controlled Airway Patency, RR, SpO2: stable & adequate BP & HR: stable & adequate Hydration State: stable & adequate Neuraxial Anesthesia: was administered and sensory block is resolving Anesthetic Complications: no major complications apparent and see Notes below Notes: After sedation initiated in the operating room, the patient began coughing and reported symptoms of GERD. Due to concerns for aspiration risk, decision was made to utilize only lite sedation in combination with her functioning spinal. Discussed with the patient in the operating room and she was ok with plan. Did report remembering being in the operating room and feeling the pounding during placement but denied any pain.
[2021-09-03] MEDS: ACETAMINOPHEN 500 MG TAB PO SCH ×2 (16:05→22:07)
[2021-09-03] MEDS: ASCORBIC ACID 500 MG TAB PO SCH (16:06)
[2021-09-03] MEDS: traMADol HCL 50 MG TABLET PO PRN (17:52)
[2021-09-03] MEDS ORDERED: TRANEXAMIC ACID / 0.7% NACL 1,000 MG/100 ML BAG IV SCH (19:00)
[2021-09-03] MEDS: ASPIRIN 81 MG ECTAB PO SCH (20:44)
[2021-09-03] MEDS: AZELASTINE HCL 0.1% NASAL 200 SPRAYS/27,400 MCG BTL NAE SCH (20:46)
[2021-09-03] MEDS ORDERED: buPROPion HCl 75 MG TABLET PO SCH (21:00)
[2021-09-03] MEDS ORDERED: GABAPENTIN 300 MG CAP PO SCH (21:00)
[2021-09-03] MEDS ORDERED: DOCUSATE SODIUM 100 MG CAP PO SCH (21:00)
[2021-09-04] MEDS: traMADol HCL 50 MG TABLET PO PRN ×2 (00:10→05:33)
[2021-09-04] MEDS: Scopolamine CHECK PATCH PLACEMENT SCH ×2 (00:13→08:23)
[2021-09-04] MEDS: KETOROLAC 30 MG/ML VIAL IV SCH ×2 (02:48→08:24)
[2021-09-04] MEDS: SODIUM CHLORIDE 0.9% 1000ML 1,000 ML IV SCH (03:33)
[2021-09-04] MEDS: ACETAMINOPHEN 500 MG TAB PO SCH ×2 (05:33→13:53)
[2021-09-04 06:16] LABS: Basophils # (auto) 0.04 K/uL (0-0.2); Basophils % (auto) 0.5 %; Eosinophils # (auto) 0.04 K/uL (0-0.5); Eosinophils % (auto) 0.5 %; Hematocrit (blood only) 34.8 % (37-47); Immature Granulocytes # (auto) 0.01 K/uL (0.00-0.02); Immature Granulocytes % (auto) 0.1 %; Lymphocytes % (auto) 28.1 %; Mean Corpuscular Hemoglobin 30.2 pg (25-34); Mean Corpuscular Hgb Conc 34.5 g/dL (32-36); Mean Corpuscular Volume 87.4 fL (80-100); Mean Platelet Volume 9.9 fL (7.4-10.4); Monocytes # (auto) 0.73 K/uL (0.11-0.59); Monocytes % (auto) 8.9 %; Neutrophils # (auto) 5.06 K/uL (1.4-6.5); Neutrophils % (auto) 61.9 %; Platelet Count 254 K/uL (130-400); RDW Coefficient of Variation 13.1 % (11.5-14.5); RDW Standard Deviation 42.3 fL (36.4-46.3); Red Blood Count 3.98 M/uL (4.2-5.4); White Blood Count 8.18 K/uL (4.8-10.8)
[2021-09-04 06:40] LABS: BUN Creatinine Ratio 17.2 (10-20); Calcium 8.3 mg/dl (8.5-10.1); Est GFR (African American) 112.1 ml/min; Est GFR (Non-African American) 96.7 ml/min; Potassium 3.4 mmol/L (3.5-5.1)
[2021-09-04] MEDS ORDERED: dexAMETHasone 10 MG in SYRINGE 0 ML IV SCH (08:00)
[2021-09-04] MEDS: ASCORBIC ACID 500 MG TAB PO SCH (08:23)
[2021-09-04] MEDS: ASPIRIN 81 MG ECTAB PO SCH (08:23)
[2021-09-04] MEDS: *RESTASIS*ORDER AWAITING ACTION SCH (08:24)
[2021-09-04] MEDS: AZELASTINE HCL 0.1% NASAL 200 SPRAYS/27,400 MCG BTL NAE SCH (08:24)
[2021-09-04] MEDS ORDERED: hydroCHLOROthiazide 25 MG TAB PO SCH (09:00)
[2021-09-04] MEDS ORDERED: PANTOprazole 40 MG TAB PO SCH (09:00)
[2021-09-04] MEDS ORDERED: MULTIVITAMIN TAB PO SCH (09:00)
[2021-09-04] MEDS ORDERED: FELODIPINE 5 MG TABCR PO SCH (09:00)
[2021-09-04] MEDS ORDERED: POLYETHYLENE (MIRALAX) 17 GM PACK PO SCH (09:00)
[2021-09-04] MEDS ORDERED: DOCUSATE SODIUM/SENNA 50/8.6MG TAB PO SCH (09:00)
--- NOTE | 2021-09-04 15:18 | Progress Notes ---
DATE OF SERVICE: 09/04/2021. SUBJECTIVE: A 66-year-old white female, postoperative day 1 from right hip replacement. She is doin g quite well. Pain is doing well. Very minimal pain. She is getting around better than she did bef ore surgery. Therapy went well. No chest pain or shortness of breath. Not feeling dizzy or lighthe aded. OBJECTIVE: VITAL SIGNS: Temperature 36.6. Vital signs are stable. GENERAL: Shows a pleasant middle-aged female. She is sitting in her bedside chair, looks comfortabl e. LUNGS: Clear to auscultation. HEART: Regular rate and rhythm. ABDOMEN: Soft, nontender, nondistended. EXTREMITIES: Grossly neurovascularly intact except as follows. Examination of the right leg reveals her dressing to be clean, dry and intact. Leg lengths were equa l. She is neurologically intact. She can dorsiflex and plantarflex her foot appropriately. LABORATORY DATA: Hemoglobin 12.0. Hematocrit 34.8. Electrolytes are stable. Potassium is slightly low at 3.4. ASSESSMENT: A 66-year-old female, postoperative day 1 from right hip replacement, doing well. Pain is controlled. Hip is located. Her pain is controlled. Therapy went well. PLAN: 1. DVT prophylaxis includes thigh-high TEDs, SCDs, and aspirin twice a day. 2. PT, OT, weightbear as tolerated. Right total hip protocol. 3. Pain control, doing well with current pain regimen. 4. Disposition: Plan to discharge to home with some home health. She is hoping to go home today. Job ID: [id number]
== END 2021-09-04 14:53 | disposition home health service (06) ==
LOC: 3E 08:17 → ASU 08:17
DX: Z79.899 Other long term (current) drug therapy; K21.9 Gastro-esophageal reflux disease without esophagitis; I10 Essential (primary) hypertension; G47.30 Sleep apnea, unspecified; M16.11 Unilateral primary osteoarthritis, right hip; E66.9 Obesity, unspecified; E78.5 Hyperlipidemia, unspecified; F32.A Depression, unspecified; Z20.822 Contact with and (suspected) exposure to COVID-19